=== PATIENT | female | born 1925 | race Caucasian/White ===

== ENCOUNTER → 2016-06-05 | Outpatient (CLI) | payer MEDICARE, OTHER ==
[~2016-06-05] MED LIST: ACET325T38 PO; AMAN50SY PO; AML2.5T PO; AMLO5TAB4 PO; ASCO500T20 PO; ASPI-586 PO; CARB1TAB5 PO; CARB1TAB6 PO; CEPH250T PO; CEPH500C PO; CHOL200018 PO; CIPR-226 PO; CLON1TAB3 PO; CLON2TAB3 PO; CPR500T PO; ESTR0.5T PO; FAMO-118 PO; FAMO-119 PO; FAMO10TA10 PO; FAMO20TA73 PO; FAMO40TA6 PO; FENT1PAT TD; FENT1PAT8 TD; FNT50TD TD; GBPN100C PO; HYDR-3811 PO; ISOS10TA8 PO; LEVO250T11 PO; LORA-405 PO; LORA1TAB PO; MAGN250T7 PO; METO-272 PO; METO50TA7 PO; MIRA25TA PO; MIRALAX 17 GM P17 GM PO; MULT-954 PO; NAPR375T5 PO; NITR100C3 PO; OMEG500C3 PO; OMEP20TA PO; OMG1KC PO; ONDA-50 PO; ONDA4TAB11 PO; ONDA4TAB8 SL; ONDAN4ODT PO; ONDN4T PO; OXYC-109 PO; PANT20TA4 PO; PANT40TA2 PO; POLY17PO6 PO; POTA10CA2 PO; POTA10CA43 PO; POTA10TA10 PO; PRED10TA PO; PRED10TA22 PO; PRED1TAB PO; PRED5DRO OP; PRED5TAB PO; SENN8.6T10 PO; SENN8.6T6 PO; SERT25TA PO; SERT25TA69 PO; SERT50TA2 PO; TOLT2TAB5 PO; TRM50T PO; TROL35.4 TP; VITA-187 PO; VITA1CAP PO; [UNRECOGNIZED DRUG - CODE] PO; [UNRECOGNIZED DRUG - CODE] PO; [UNRECOGNIZED DRUG - CODE] PO
== END ==
LOC: EMS 05:17
DX: Z53.20 Procedure and treatment not carried out because of patient's decision for unspecified reasons (principal)

== ENCOUNTER → 2016-06-05 | Outpatient (REF) | payer MEDICARE, OTHER ==
[2016-06-05 14:17] LABS: BILIRUBIN,URINE Negative (Negative); CLARITY,URINE Cloudy; COLOR,URINE Yellow; GLUCOSE, URINE (UA) Negative (Negative); LEUKOCYTE ESTERASE, URINE 1+ (Negative); UROBILINOGEN,URINE 0.2 mg/dL (0.2-1.0)
[2016-06-05 14:30] LABS: URINE CENTRIFUGED VOLUME 12 mL
[2016-06-05 14:31] LABS: CALCIUM OXALATE CRYSTALS,UR 3+ /HPF
== END ==
LOC: LAB 10:58
PROVIDERS: ATTEND Family Medicine
DX: N39.0 Urinary tract infection, site not specified (principal)
CPT/HCPCS: 81003; 81015; 87077; 87088; 87186

== ENCOUNTER → 2016-06-20 | Outpatient (CLI) | payer MEDICARE, OTHER | LOC: EMS 04:20 | DX: Z53.20 Procedure and treatment not carried out because of patient's decision for unspecified reasons (principal) ==

== ENCOUNTER → 2016-09-02 | Outpatient (REF) | payer MEDICARE, OTHER ==
[2016-09-02 15:29] LABS: BILIRUBIN,URINE Negative (Negative); CLARITY,URINE Clear; COLOR,URINE Yellow; GLUCOSE, URINE (UA) Negative (Negative); LEUKOCYTE ESTERASE ,URINE 2+ (Negative); UROBILINOGEN,URINE 0.2 mg/dL (0.2-1.0)
[2016-09-02 15:30] LABS: URINE CENTRIFUGED VOLUME 12 mL
[2016-09-02 15:35] LABS: RBC,URINE 0-2 /HPF
== END ==
LOC: LAB 15:09
PROVIDERS: ATTEND Urology
DX: N39.0 Urinary tract infection, site not specified (principal); R82.99 Other abnormal findings in urine; R41.0 Disorientation, unspecified
CPT/HCPCS: 81003; 81015; 87077; 87088; 87186

== ENCOUNTER → 2016-10-16 | Outpatient (REF) | payer MEDICARE, OTHER ==
[2016-10-16 12:22] LABS: BILIRUBIN,URINE Negative (Negative); CLARITY,URINE Cloudy; GLUCOSE, URINE (UA) Negative (Negative); LEUKOCYTE ESTERASE ,URINE 3+ (Negative); UROBILINOGEN,URINE 0.2 mg/dL (0.2-1.0)
[2016-10-16 12:25] LABS: COLOR,URINE Dark Yellow
[2016-10-16 12:42] LABS: URINE CENTRIFUGED VOLUME 12 mL
[2016-10-16 12:43] LABS: RBC,URINE 20-50 /HPF
== END ==
LOC: LAB 11:42
PROVIDERS: ATTEND Family Medicine
DX: N39.0 Urinary tract infection, site not specified (principal)
CPT/HCPCS: 81003; 81015; 87077; 87088; 87186

== ENCOUNTER 2016-10-22 08:34 | Emergency (ER) | payer MEDICARE, OTHER ==
[~2016-10-22] VITALS: Ht 157.5 cm; Wt 68.0 kg
[2016-10-22 09:18] LABS: MEAN CORPUSCULAR HGB CONC 34.3 g/dL (31.0-37.0); MEAN CORPUSCULAR VOLUME 97 FL (80-100); MEAN PLATELET VOLUME 10.4 FL (6.0-9.5); PLATELET COUNT 126 10^3uL (150-450)
[2016-10-22 09:19] LABS: MEAN CORPUSCULAR HEMOGLOBIN 33.3 PG (26.0-34.0)
[2016-10-22 09:24] LABS: ALBUMIN 4.1 g/dL (3.4-5.0); ANION GAP 14.8 MEQ/L (3-15); CALCULATED IONIZED CALCIUM 3.9 mg/dL (3.8-4.6); TOTAL PROTEIN 7.6 g/dL (6.4-8.5)
[2016-10-22 09:32] LABS: BAND NEUTROPHILS % 1 % (0-6); EOSINOPHILS % 0 % (0-4); LYMPHOCYTES # 1.8 #; MONOCYTES # 1.4 #; MONOCYTES % 20 % (3-11); RBC MORPH NORMAL (NORMAL); SEGMENTED NEUTROPHILS % 54 % (51-67); TOTAL CELLS COUNTED 100
[2016-10-22 10:00] LABS: BILIRUBIN,URINE Negative (Negative); COLOR,URINE Yellow; GLUCOSE, URINE (UA) Negative (Negative); LEUKOCYTE ESTERASE ,URINE Trace (Negative); PH,URINE 6.5 (5.0 - 8.0); UROBILINOGEN,URINE 0.2 mg/dL (0.2-1.0)
[2016-10-22 10:33] LABS: CLARITY,URINE Slightly Cloudy; URINE CENTRIFUGED VOLUME 10 mL
[2016-10-22 10:44] LABS: RBC,URINE 50-100 /HPF
[2016-10-22] MEDS ORDERED: CPR500T PO (10:48)
[2016-10-22 12:26] VITALS: BP 154/76
== END 2016-10-22 11:00 | disposition home or self-care (01) ==
LOC: EDUNIT# 08:34 → ED 08:37
DX: N30.01 Acute cystitis with hematuria (principal); I11.0 Hypertensive heart disease with heart failure; I50.9 Heart failure, unspecified; R11.0 Nausea; R42 Dizziness and giddiness
CPT/HCPCS: 36415; 51798; 80053; 81003; 81015; 83880; 85025; 85610; 86140; 87088; 99283

== ENCOUNTER → 2016-10-24 | Outpatient (CLI) | payer MEDICARE, OTHER | LOC: EMS 14:04 | DX: Z53.20 Procedure and treatment not carried out because of patient's decision for unspecified reasons (principal) ==